=== PATIENT | male | born 1960 | race Caucasian/White ===

== ENCOUNTER 2018-12-31 12:25 | Outpatient (CLI) | payer OTHER ==
[~2018-12-31 12:25] MED LIST: ALBUTEROL NEB 2.5 MG/3 ML INH ONE
== END 2018-12-31 12:26 | disposition home or self-care (01) ==
LOC: RT 12:25
PROVIDERS: ATTEND Family Medicine
DX: R05 Cough (principal); R49.8 Other voice and resonance disorders
CPT/HCPCS: 94010